=== PATIENT | female | born 1995 ===

== ENCOUNTER 2017-05-29 14:20 | Emergency (ER) | payer SELFPAY ==
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
[2017-05-29 16:54] VITALS: BP 121/76
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
== END 2017-05-29 16:54 | disposition home or self-care (01) ==
LOC: ED 14:20
DX: S09.90XA Unspecified injury of head, initial encounter (principal); M54.2 Cervicalgia; R07.81 Pleurodynia; M25.562 Pain in left knee; V48.5XXA Car driver injured in noncollision transport accident in traffic accident, initial encounter; Y92.488 Other paved roadways as the place of occurrence of the external cause; R51 Headache
CPT/HCPCS: 70450; 71250; 72125; 99282